=== PATIENT | male | born 2000 | race Caucasian/White ===

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

== ENCOUNTER 2020-05-17 19:19 | Emergency (ER) | payer SELFPAY ==
[2020-05-17 19:29] VITALS: BP 135/73; PULSE 96; RESP 16; TEMP 36.4; O2SAT 95
--- NOTE | 2020-05-17 20:22 | W.ED.GENAD ---
Discharge Plan Disposition Patient Disposition: HOME Condition: Good Discharge Details Clinical Impression: Foreign body in eye Primary Care Provider: Daniela Funk ED Provider: Rosmery Vega Home Meds and New Rx's Prescriptions: No Action No Known Home Meds RF: 0 Discharge Instructions Instructions: Erythromycin (Into the eye), Eye Foreign Body (ED) Additional Instructions: You had a piece of metal in the eye which was removed. However, there are also multiple scratches of your cornea. Please apply the erythromycin ointment as was instructed by nursing staff 4 times daily for the next 5 days. Please call [facility], number listed below, to schedule appointment in the next 2 days for reevaluation. If you develop fever/chills, discharge from the eye, visual changes, redness or other new/worsening symptoms please seek care urgently once again. Tetanus was updated today. Referrals: [facility] [place] [facility] [Outside] Daniela Funk, BEVEL GEAR GENERATOR OPERATOR [Primary Care Provider] - Discharge Data Discharge Date/Time-TO BE ENTERED AT DEPARTURE: 05/17/20 20:40 Medical Decision Making Patient is a pleasant 50-year-old male presenting today with chief complaint of foreign body in his right eye. 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 Last tetanus was 2012. He denies any visual changes. Denies any discharge GI. No other injuries noted. On exam, he has mild diffuse injection of the right eye. No discharge. A small black leonel consistent with restroom out was noted in the upper lid, this was removed with a Q-tip. Patient had multiple linear areas of fluorescein uptake on slit-lamp exam consistent with corneal abrasions likely from the patient blinking with a foreign body in place. Erythromycin ointment was started. Patient was instructed on how to apply this at home. Tetanus was updated. Patient does not use contacts or corrective lenses. I have asked that he follow-up with [facility]. She will call them tomorrow to schedule appointment. Return precautions were discussed. All his questions and concerns were addressed and he is in agreement this plan. HPI General Mode of arrival: ambulatory. Date/Time Provider Initiated Documentation: 05/17/20 20:05. Limitations to Documentation: no limitations. Information obtained by: patient and RN notes reviewed. History of Present Illness 19 year old M presents to the emergency department with the chief complaint of FB sensation and discomfort right eye, described as moderate, with intensity rated at 5. and is localized to the eyes. Patient reports no radiation. Patient started experiencing this minute(s) and it has been constant. No relieving factors improve symptom(s), No exacerbating factors reported . Patient notes no other symptoms.. Patient did receive the following treatments prior to arrival, none Related Data Home Medications Medication Instructions Recorded Confirmed Unknown [No Known Home Meds] 05/17/20 05/17/20 Allergies Allergy/AdvReac Type Severity Reaction Status Date / Time amoxicillin Allergy Mild RASH Verified 05/17/20 19:32 General Stated Complaint: EyeProblem PAYAM: 4 Review of Systems Constitutional Constitutional: Reports as per HPI, Denies chills, Denies fatigue, Denies fever(s) and Denies headache(s) Eyes Eyes: Reports as per HPI ENT Ears, Nose, Mouth, and Throat: Denies headache(s) Cardiovascular Cardiovascular: Reports as per HPI, Denies chest pain and Denies lightheadedness Respiratory Respiratory: Denies cough Integumentary/Breasts Skin/Breast: Reports as per HPI, Denies rash, Denies skin pain and Denies skin swelling Neurologic Neurologic: Denies headache(s) and Denies radicular pain Endocrine Endocrine: Denies fatigue [facility] Medical History (Updated 05/17/20 @ 20:25 by DEBRA Lozano) [id number]-[id number] spots right cheek Chronic back pain 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) Heart murmur Still's murmur Premature at 32 weeks Surgical History Repair of inguinal hernia bilateral at 6 months age Family History Father Mental disorder depression related to back pain Other Disorder of thyroid gland several maternal relatives Personal history of malignant neoplasm mat uncle with lymphoma Heart disease on maternal side Parkinsonism maternal side Grandmother Hypertensive disorder, systemic arterial Mother Hx of tonsillectomy Social History Smoking/Tobacco Use Status: Never Smoking risk assessment performed?: Yes Alcohol Intake: never Drug use: Never Substance use type: does not use Do you feel safe at home: Yes Do you feel safe in your relationship?: Yes Exam Const General: cooperative, healthy appearing, comfortable, no acute distress, well developed and well groomed Nutritional Appearance: average body habitus and well nourished Orientation: alert, awake and oriented x3 [facility] Head: normal to inspection, normocephalic and atraumatic Ears: hearing grossly normal bilaterally and external ears normal General nose exam: external nose normal and nares normal Face and sinus: normal facial exam and face symmetric Mouth: oral mucosae normal, lip normal and moist mucous membranes Eyes Visual Champagne: normal visual champagne by confrontation Alignment and Position: alignment normal and position normal Periorbital: periorbital findings normal Eyelids: eyelid abnormality right upper eyelid foreign body (small black leonel ) Conjunctivae: conjunctival abnormality right conjunctival injection diffuse Cornea: corneas abnormal on the right fluorescein used and abrasion (multiple linear abrasions over pupil) Pupils: PERRL, normal by confrontation and accommodation normal EOM: EOM intact bilaterally Resp Effort & Inspection: normal respiratory effort, able to speak in complete sentences and no respiratory distress Skin General skin exam: no rashes or lesions noted Neuro General: patient alert, patient awake and patient oriented x3 Cranial Nerves: CN's II-XI intact bilaterally Cognition: normal cognition Speech: speech normal Gait: normal gait Psych Appearance: grossly normal and well kempt Mental Status: mental status grossly normal Speech and Movement: speech and movement normal Course Vital Signs Vital signs: Vital Signs Temperature 36.4 C L 05/17/20 19:29 Pulse 96 H 05/17/20 19:29 Respiratory Rate 16 05/17/20 19:29 Blood Pressure 135/73 05/17/20 19:29 Pulse Oximetry 95 05/17/20 19:29 Temperature 36.4 C L 05/17/20 19:29 Temperature Source Skin 05/17/20 19:29 Pulse 96 H 05/17/20 19:29 Respiratory Rate 16 05/17/20 19:29 Respiratory Effort Non-Labored 05/17/20 19:33 Blood Pressure 135/73 05/17/20 19:29 Pulse Oximetry 95 05/17/20 19:29 Pain Level 5 05/17/20 19:29
[2020-05-17] MEDS: Erythromycin Ophth Oint 3.5 GM TUBE OD (20:35)
[2020-05-17] MEDS: Tetracaine 0.5% 4 ML BTL (20:36)
[2020-05-17] MEDS: Fluorescein STRIPS 100/BOX 1 MG (20:36)
== END 2020-05-17 20:40 | disposition home or self-care (01) ==
PROVIDERS: Emergency Provider Physician Assistant; PCP Nurse Practitioner
DX: S00.251A Superficial foreign body of right eyelid and periocular area, initial encounter; S05.01XA Injury of conjunctiva and corneal abrasion without foreign body, right eye, initial encounter; W45.8XXA Other foreign body or object entering through skin, initial encounter
CPT/HCPCS: 90471; 99284; 99283

== ENCOUNTER 2022-02-20 13:28 | Emergency (ER) | payer OTHER, SELFPAY ==
[2022-02-20 13:32] VITALS: BP 154/96; PULSE 97; RESP 32; TEMP 36.5; O2SAT 100
[2022-02-20] MEDS: Ondansetron 4 MG/2 ML VIAL IVP (13:48)
[2022-02-20] MEDS: LORazepam 20 MG/10 ML VIAL IVP (13:49)
[2022-02-20 14:05] LABS: Abs Immature Grans 0.02 10^3/uL (0.0-0.06); Absolute Basophil Count 0.05 10^3/uL (0.0-0.2); Absolute Eosinophil Count 0.14 10^3/uL (0.0-0.7); Absolute Lymphocyte Count 2.96 10^3/uL (1.2-3.4); Absolute Monocyte Count 0.65 10^3/uL (0.1-0.8); Absolute Neutrophil Count 5.95 10^3/uL (1.2-6.7); Basophils % 0.5; Eosinophils % 1.4; HCT 45.1 % (40.0-50.0); Immature Grans % 0.2; Lymphocytes % 30.3; MCH 30.6 pg (27.0-33.0); MCHC 35.5 % (32.0-36.0); MCV 86 fL (80-95); MPV 11.3 fL (8.0-11.0); Monocytes % 6.7; Neutrophils % 60.9; Platelet Count 298 10^3/uL (130-400); RBC 5.23 10^6/uL (4.36-5.78); RDW 12.1 % (11.8-14.1); RDW-SD 38.5 fL; WBC 9.77 10^3/uL (4.4-10.8)
--- NOTE | 2022-02-20 14:08 | NUR.NOTE ---
Nursing Note: patient vomited in triage x1. patient states stomach feels worse even after Zofran. provider aware.
[2022-02-20 14:24] LABS: Bilirubin Negative (Negative); Blood Negative (Negative); Clarity Sl Cloudy (Clear); Glucose Negative (Negative); Ketones 15 mg/dL (Negative); Leukocyte Esterase Negative (Negative); Nitrite Negative (Negative); Urobilinogen 0.2 EU/dL (Up TO 0.2); pH 8.5 (5-8)
[2022-02-20 14:27] LABS: ALT 34 U/L (16-63); AST 27 U/L (15-37); Albumin 4.7 g/dL (3.4-5.0); Alkaline Phosphatase 92 U/L (46-116); Anion Gap 15.5 mmol/L (3-11); BUN 13 mg/dL (7-18); Bilirubin, Total 0.8 mg/dL (0.2-1.0); CO2 22.5 mmol/L (21.0-32.0); Calcium 9.5 mg/dL (8.5-10.1); Chloride 99 mmol/L (98-107); Estimated GFR 109.81 (mL/min/1.73m2); Glucose 119 mg/dL (74-106); Lipase 39 U/L (73-393); Magnesium 1.8 mg/dL (1.8-2.4); Potassium 3.2 mmol/L (3.5-5.1); Sodium 137 mmol/L (136-145); Total Protein 8.7 g/dL (6.4-8.2)
[2022-02-20 14:35] LABS: Bacteria Negative HPF (Negative); C & S Indicated? No; Casts Negative LPF (Negative); Crystals Many Amorphous HPF (Negative); Epithelial Cells Rare HPF (Negative); Mucus Negative (Negative); WBC 0-2 HPF (0-5)
[2022-02-20 14:46] VITALS: RESP 12
[2022-02-20] MEDS: Normal Saline 1,000 ML 1000 ML IV (14:46)
[2022-02-20 15:18] VITALS: TEMP 36.5
[2022-02-20 15:19] LABS: Source Nasal/Nares
[2022-02-20 15:24] VITALS: BP 117/81; PULSE 55; RESP 16; TEMP 36.5; O2SAT 99
--- NOTE | 2022-02-20 15:30 | RT.EKG_ITS ---
APPROVED REPORT Exam: Resting ECG Reason for Exam: chest tightness Patient Location: E HR:56 bpm ECG Measurements Heart Rate 56 AXIS CA 116 P 39 QRSd 107 QRS 74 QT 430 T 53 QTc 415 Conclusion Sinus bradycardia...rate< 60. Sinus. Normal axis. No STEMI. I have reviewed and interpreted ECG and agree with software generated interpretation.
[2022-02-20 15:53] LABS: COVID-19 PCR Negative (Negative)
--- NOTE | 2022-02-20 16:02 | ED.GENADUL_ITS ---
Discharge Plan Disposition Patient Disposition: HOME Condition: Improving Discharge Details Clinical Impression: Acute nausea with nonbilious vomiting, Anxiety disorder due to general medical condition with panic attack Primary Care Provider: Daniela Funk ED Provider: Herbert Sharif Home Meds and New Rx's Prescriptions: No Action No Known Home Meds Discharge Instructions Instructions: Acute Nausea and Vomiting (ED) Additional Instructions: Please take the p.o. nausea medication as directed on the bottle. You may slowly advance your diet as tolerated and return immediately to the emergency department for any new or significant worsening symptoms. Your nausea that is recurrent may also be secondary to marijuana usage. It is recommended that you stop any marijuana or THC for the next 2 weeks to see if this helps you with your symptoms. If not improving in the next week please follow-up with primary care provider for reassessment. Referrals: Daniela Funk, BUSINESS INTEGRATION ANALYST [Primary Care Provider] - 1 week (If not improving) Discharge Data Discharge Date/Time-TO BE ENTERED AT DEPARTURE: 02/20/22 16:40 Medical Decision Making Patient presenting to the emergency department for chief complaint of nausea vomiting and some diarrhea. After he started vomiting he began hyperventilating causing facial and hand cramps with chest tightness and some shortness of breath. Patient was eating [place] food at the time. Patient denies any food allergies. Physical exam shows significantly anxious patient with tachypnea and hyperventilation with bilateral carpal spasms. Patient endorsing some extremity tingling around along with circumoral tingling. Exam is otherwise unremarkable except for diffuse abdominal tenderness that is nonfocal in nature and I feel secondary to vomiting. We will plan on checking patient's labs but I suspect either viral versus food borne illness causing secondary panic attack. Reviewed patient's labs and CBC is nondiagnostic and overall unremarkable. Patient's potassium slightly low at 3.2 and an anion gap of 15.5 otherwise unremarkable LFTs, magnesium is appropriate, calcium is appropriate, lipase also unremarkable at 39. Urinalysis does show ketones and high pH but again otherwise nondiagnostic and overall unremarkable. Patient was noted negative for COVID. Reassessed patient after receiving fluids and meds and he does state significant improvement of symptoms. Mother now in the room and she does state that patient has history of cyclical vomiting and panic attacks. Discussed other potential causes with patient including cannabinoid hyperemesis. Recommended clear liquid diet with slowly advancing diet as tolerated along with returning to the emergency department for any focal abdominal findings but at this time I do not feel that CT imaging is needed. Cute onset of nausea vomiting. After discussion of diagnosis and plan of care patient and mother have no further needs, questions, or concerns and states clear understanding to return to the emergency department for any worsening symptoms. This documentation was generated using [employer] dictation system, please disregard any oddities of phrase or misspellings. Lab Data Lab results reviewed: Yes I reviewed the patient's lab results. HPI General Mode of arrival: ambulatory . Date/Time Provider Initiated Documentation: 02/20/22 13:40 . Limitations to Documentation: no limitations . Information obtained by: patient and RN notes reviewed . History of Present Illness 21 year old M presents to the emergency department with the chief complaint of Nausea and vomitting and now hand cramping, described as moderate, with intensity rated at 4. Quality is described as aching, and is localized to the abdomen. Patient reports no radiation. Patient started experiencing this hour(s) (1) and it has been constant. No relieving factors improve symptom(s), Eating worsens symptoms . Patient notes chest pain, loss of appetite, nausea/vomiting and shortness of breath. Patient did receive the following treatments prior to arrival, none Related Data Home Medications Medication Instructions Recorded Confirmed Unknown [No Known Home Meds] 05/17/20 02/20/22 Allergies Allergy/AdvReac Type Severity Reaction Status Date / Time amoxicillin Allergy Mild RASH Verified 02/20/22 14:15 General Stated Complaint: GenMedical PAYAM: 3 Review of Systems Constitutional Constitutional: Denies fatigue and Reports fever(s) (Subjective) Cardiovascular Cardiovascular: Reports chest pain and Reports dyspnea Respiratory Respiratory: Denies cough and Reports dyspnea Gastrointestinal Gastrointestinal: Reports as per HPI, Reports abdominal pain, Denies melena, Denies hematochezia, Denies change in bowel habits, Denies constipation, Reports diarrhea, Reports nausea, Reports vomiting and Denies hematemesis Genitourinary Genitourinary: Denies hematuria, Denies difficulty urinating and Denies dysuria Musculoskeletal Musculoskeletal: Denies back pain, Reports muscle cramps and Reports tingling Integumentary/Breasts Skin/Breast: Denies rash Neurologic Neurologic: Reports tingling Psychiatric Psychiatric: Reports anxiety Endocrine Endocrine: Denies fatigue PFSH All Active Problems Acute nausea with nonbilious vomiting (Acute) Anxiety disorder due to general medical condition with panic attack (Acute) Chronic back pain (Acute) Acute bilateral low back pain with bilateral sciatica (Acute) Contusion of foot (Acute) Medical History Jqcz-[id number] spots right cheek 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) Heart murmur Still's murmur Premature at 32 weeks Surgical History Repair of inguinal hernia bilateral at 6 months age Family History Father Mental disorder depression related to back pain Other Disorder of thyroid gland several maternal relatives Personal history of malignant neoplasm mat uncle with lymphoma Heart disease on maternal side Parkinsonism maternal side Grandmother Hypertensive disorder, systemic arterial Mother Hx of tonsillectomy Social History Smoking/Tobacco Use Status: Current every day Tobacco Type: e-cigarettes Tobacco: How many years used: 1 Smoking risk assessment performed?: Yes Alcohol Intake: never Drug use: Daily Substance use type: marijuana Do you feel safe at home: Yes Do you feel safe in your relationship?: Yes Exam Const General: cooperative, acute distress moderate; not respiratory and anxious Orientation: alert, awake and oriented x3 Resp Effort & Inspection: able to speak in complete sentences, no respiratory distress and tachypneic Auscultation: clear to auscultation bilaterally Cardio Rate: regular rate Rhythm: regular rhythm Heart Sounds: S1 normal and S2 normal GI Palpation: soft, no hepatosplenomegaly, not firm, no guarding, no masses, no pulsatile masses, not rigid, no splenomegaly and tender (difuse nonperitoneal findings) Auscultation: normal bowel sounds Back/Spine/Pelvis Back: no CVA tenderness Neuro General: patient alert, patient awake, patient oriented x3, gait normal and mov es all extremities Psych Mood: anxious mood Affect: anxious affect Course Vital Signs Vital signs: Vital Signs Temperature 36.5 C 02/20/22 13:32 Pulse 97 H 02/20/22 13:32 Respiratory Rate 32 H 02/20/22 13:32 Blood Pressure 154/96 H 02/20/22 13:32 Pulse Oximetry 100 02/20/22 13:32 Temperature 36.5 C 02/20/22 15:24 Temperature Source Tympanic 02/20/22 15:24 Pulse 55 L 02/20/22 15:24 Respiratory Rate 16 02/20/22 15:24 Respiratory Effort Non-Labored 02/20/22 14:46 Respiratory Depth Normal 02/20/22 14:46 Respiratory Pattern Normal 02/20/22 14:46 Blood Pressure 117/81 02/20/22 15:24 Blood Pressure Position Sitting 02/20/22 13:32 Pulse Oximetry 99 02/20/22 15:24 Oxygen Delivery Method Room Air 02/20/22 15:24 Oxygen Flow Rate 0 02/20/22 15:24 Pain Level 4 02/20/22 13:32 Lab/Test Results Lab/Test Results: Laboratory Tests Range/Units 02/20/22 02/20/22 02/20/22 13:35 13:35 14:00 WBC (4.4-10.8) 10^3/uL 9.77 RBC (4.36-5.78) 10^6/uL 5.23 Hgb (13.5-17.5) g/dL 16.0 Hct (40.0-50.0) % 45.1 MCV (80-95) fL 86 MCH (27.0-33.0) pg 30.6 MCHC (32.0-36.0) % 35.5 RDW (11.8-14.1) % 12.1 Plt Count (130-400) 10^3/uL 298 MPV (8.0-11.0) fL 11.3 H Immature Gran % 0.2 Neutrophils % 60.9 Lymphocytes % 30.3 Monocytes % 6.7 Eosinophils % 1.4 Basophils % 0.5 Nucleated RBC % (0.0-0.3) % 0.0 Absolute Neutrophils (1.2-6.7) 10^3/uL 5.95 Absolute Lymphocytes (1.2-3.4) 10^3/uL 2.96 Absolute Monocytes (0.1-0.8) 10^3/uL 0.65 Absolute Eosinophils (0.0-0.7) 10^3/uL 0.14 Absolute Basophils (0.0-0.2) 10^3/uL 0.05 Sodium (136-145) mmol/L 137 Potassium (3.5-5.1) mmol/L 3.2 L Chloride (98-107) mmol/L 99 Carbon Dioxide (21.0-32.0) mmol/L 22.5 Anion Gap (3-11) mmol/L 15.5 H BUN (7-18) mg/dL 13 Creatinine (0.70-1.30) mg/dL 1.0 Est GFR (CKD-EPI 2020) (mL/min/1.73m2) 109.81 Glucose (74-106) mg/dL 119 H Calcium (8.5-10.1) mg/dL 9.5 Magnesium (1.8-2.4) mg/dL 1.8 Total Bilirubin (0.2-1.0) mg/dL 0.8 AST (15-37) U/L 27 ALT (16-63) U/L 34 Alkaline Phosphatase (46-116) U/L 92 Total Protein (6.4-8.2) g/dL 8.7 H Albumin (3.4-5.0) g/dL 4.7 Lipase (73-393) U/L 39 Urine Color (Yellow) Yellow Urine Clarity (Clear) Sl Cloudy Urine pH (5-8) 8.5 H Ur Specific [place] (1.005-1.025) 1.020 Urine Protein (Negative) mg/dL 30 H Urine Ketones (Negative) mg/dL 15 H Urine Blood (Negative) Negative Urine Nitrite (Negative) Negative Urine Bilirubin (Negative) Negative Urine Urobilinogen (Up TO 0.2) EU/dL 0.2 Ur Leukocyte Esterase (Negative) Negative Urine RBC (0-2) HPF 3-5 H Urine WBC (0-5) HPF 0-2 Ur Epithelial Cells (Negative) HPF Rare Urine Crystals (Negative) HPF Many Amorphous Urine Bacteria (Negative) HPF Negative Urine Casts (Negative) LPF Negative Urine Mucus (Negative) Negative Ur Culture Indicated? No Urine Glucose (Negative) mg/dL Negative COVID-19 Source Range/Units 02/20/22 15:07 WBC (4.4-10.8) 10^3/uL RBC (4.36-5.78) 10^6/uL Hgb (13.5-17.5) g/dL Hct (40.0-50.0) % MCV (80-95) fL MCH (27.0-33.0) pg MCHC (32.0-36.0) % RDW (11.8-14.1) % Plt Count (130-400) 10^3/uL MPV (8.0-11.0) fL Immature Gran % Neutrophils % Lymphocytes % Monocytes % Eosinophils % Basophils % Nucleated RBC % (0.0-0.3) % Absolute Neutrophils (1.2-6.7) 10^3/uL Absolute Lymphocytes (1.2-3.4) 10^3/uL Absolute Monocytes (0.1-0.8) 10^3/uL Absolute Eosinophils (0.0-0.7) 10^3/uL Absolute Basophils (0.0-0.2) 10^3/uL Sodium (136-145) mmol/L Potassium (3.5-5.1) mmol/L Chloride (98-107) mmol/L Carbon Dioxide (21.0-32.0) mmol/L Anion Gap (3-11) mmol/L BUN (7-18) mg/dL Creatinine (0.70-1.30) mg/dL Est GFR (CKD-EPI 2020) (mL/min/1.73m2) Glucose (74-106) mg/dL Calcium (8.5-10.1) mg/dL Magnesium (1.8-2.4) mg/dL Total Bilirubin (0.2-1.0) mg/dL AST (15-37) U/L ALT (16-63) U/L Alkaline Phosphatase (46-116) U/L Total Protein (6.4-8.2) g/dL Albumin (3.4-5.0) g/dL Lipase (73-393) U/L Urine Color (Yellow) Urine Clarity (Clear) Urine pH (5-8) Ur Specific [place] (1.005-1.025) Urine Protein (Negative) mg/dL Urine Ketones (Negative) mg/dL Urine Blood (Negative) Urine Nitrite (Negative) Urine Bilirubin (Negative) Urine Urobilinogen (Up TO 0.2) EU/dL Ur Leukocyte Esterase (Negative) Urine RBC (0-2) HPF Urine WBC (0-5) HPF Ur Epithelial Cells (Negative) HPF Urine Crystals (Negative) HPF Urine Bacteria (Negative) HPF Urine Casts (Negative) LPF Urine Mucus (Negative) Ur Culture Indicated? Urine Glucose (Negative) mg/dL COVID-19 Source Nasal/Nares
[2022-02-20] MEDS: Ondansetron O.D.T. 4 MG TABEF, 3 TABS/BTL PO (16:43)
== END 2022-02-20 16:40 | disposition home or self-care (01) ==
PROVIDERS: Emergency Provider Nurse Practitioner Family; PCP Nurse Practitioner
DX: R11.2 Nausea with vomiting, unspecified (principal); F41.0 Panic disorder [episodic paroxysmal anxiety]; F17.290 Nicotine dependence, other tobacco product, uncomplicated; E87.6 Hypokalemia; R07.89 Other chest pain; Z20.822 Contact with and (suspected) exposure to COVID-19
CPT/HCPCS: 80053; 83690; 87635; 93005; 96361; 96374; 96375; 99284; 81003; 81015; 83735; 85025; 93010; J2405; J3490

== ENCOUNTER 2022-03-20 10:35 | Emergency (ER) | payer OTHER, SELFPAY ==
[2022-03-20 10:41] VITALS: BP 133/85; PULSE 92; RESP 18; TEMP 36.7; O2SAT 97
--- NOTE | 2022-03-20 10:44 | W.ED.GENAD ---
Discharge Plan Disposition Patient Disposition: HOME Condition: Improving Discharge Details Clinical Impression: Allergic reaction to hymenoptera venom Primary Care Provider: Daniela Funk ED Provider: Salazar Brown Home Meds and New Rx's Prescriptions: New prednisone 50 mg tablet 50 mg PO DAILY 5 Days Qty: 5 0RF Discharge Instructions Instructions: General Allergic Reaction (ED) Additional Instructions: Topical Benadryl to the left hand will help ease discomfort. May use Benadryl 25 to 50 mg at bedtime for persistent itching. Please take prednisone as prescribed until finished once daily. Return to the ER for any acute concern. Medical Decision Making 21-year-old male presents from home after being struck by a yellow jacket wasp on Saturday. Had left hand dorsum swelling, itching and edema. No difficulty swallowing or breathing. No fever. Consistent with acute hymenoptera reaction. We will treat with a burst of prednisone and topical antihistamine. He is stable and appropriate for discharge to home. HPI General Mode of arrival: ambulatory. Date/Time Provider Initiated Documentation: 03/20/22 10:36. Limitations to Documentation: no limitations. Information obtained by: patient. History of Present Illness 21 year old M presents to the emergency department with the chief complaint of Left hand itching and swelling after insect bite/hymenoptera, described as moderate, Quality is described as dull and constant, and is localized to the left and upper extremity. Patient reports no radiation. Patient started experiencing this day(s) and it has been constant. No relieving factors improve symptom(s), No exacerbating factors reported . Patient notes denies chest pain, cough and shortness of breath. Patient did receive the following treatments prior to arrival, none Related Data Home Medications Medication Instructions Recorded Confirmed prednisone 50 mg tablet 50 mg PO DAILY 5 days #5 tabs 03/20/22 Previous Rx's Medication Instructions Recorded prednisone 50 mg tablet 50 mg PO DAILY 5 days #5 tabs 03/20/22 Allergies Allergy/AdvReac Type Severity Reaction Status Date / Time amoxicillin Allergy Mild RASH Verified 03/20/22 10:43 General Stated Complaint: Allergic PAYAM: 4 Review of Systems Narrative: No shortness of breath, or difficulty swallowing, otherwise healthy gentleman. 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) Heart murmur Still's murmur Premature at 32 weeks Surgical History Repair of inguinal hernia bilateral at 6 months age Family History Father Mental disorder depression related to back pain Other Disorder of thyroid gland several maternal relatives Personal history of malignant neoplasm mat uncle with lymphoma Heart disease on maternal side Parkinsonism maternal side Grandmother Hypertensive disorder, systemic arterial Mother Hx of tonsillectomy Social History Smoking/Tobacco Use Status: Current every day Tobacco Type: e-cigarettes Tobacco: How many years used: 1 Smoking risk assessment performed?: Yes Alcohol Intake: never Drug use: Daily Substance use type: marijuana Do you feel safe at home: Yes Do you feel safe in your relationship?: Yes Exam Narrative Exam Narrative: GEN: awake, alert, oriented 3. Pleasant, well groomed, interactive. HEAD: Normocephalic, atraumatic EYES: PERRL, EOMI NECK: Full ROM, no STEVEN, no menigismus CHEST/RESP: Nontender, clear to auscultation bilateral, no wheeze/rhonchi/rales CARDIOVASCULAR: RRR, no murmur, rub albin. 2+ Rad pulse bilateral EXT: Full ROM, left dorsum of the hand edematous with slight erythema present. Neuro: Grossly normal neurologic exam, conversant, interactive. Psych: Speech fluent, thoughts congruent, affect normal Course Vital Signs Vital signs: Vital Signs Temperature 36.7 C 03/20/22 10:41 Pulse 92 H 03/20/22 10:41 Respiratory Rate 18 03/20/22 10:41 Blood Pressure 133/85 03/20/22 10:41 Pulse Oximetry 97 03/20/22 10:41 Temperature 36.7 C 03/20/22 10:41 Temperature Source Oral 03/20/22 10:41 Pulse 92 H 03/20/22 10:41 Respiratory Rate 18 03/20/22 10:41 Blood Pressure 133/85 03/20/22 10:41 Blood Pressure Position Sitting 03/20/22 10:41 Pulse Oximetry 97 03/20/22 10:41 Oxygen Delivery Method Room Air 03/20/22 10:41 Oxygen Flow Rate 0 03/20/22 10:41
== END 2022-03-20 10:56 | disposition home or self-care (01) ==
PROVIDERS: Emergency Provider Emergency Medicine; PCP Nurse Practitioner
DX: T63.461A Toxic effect of venom of wasps, accidental (unintentional), initial encounter (principal); L29.9 Pruritus, unspecified; F17.290 Nicotine dependence, other tobacco product, uncomplicated; Y92.009 Unspecified place in unspecified non-institutional (private) residence as the place of occurrence of the external cause
CPT/HCPCS: 99283; 99284

== ENCOUNTER 2022-07-09 13:01 | Emergency (ER) | payer SELFPAY ==
--- NOTE | 2022-07-09 13:00 | RT.EKG_ITS ---
APPROVED REPORT Exam: Resting ECG Reason for Exam: nausea vomiting Patient Location: E HR:75 bpm ECG Measurements Heart Rate 75 AXIS MI 107 P 1 QRSd 103 QRS 77 QT 407 T 41 QTc 456 Conclusion Sinus rhythm...normal P axis, V-rate 60- 99
[2022-07-09 13:13] VITALS: BP 176/84; PULSE 84; RESP 22; TEMP 36.3; O2SAT 98
[2022-07-09 13:16] VITALS: BP 176/84; O2SAT 100
--- NOTE | 2022-07-09 13:22 | ED.GENADUL_ITS ---
Discharge Plan Disposition Patient Disposition: Home Condition: Improving Discharge Details Chief Complaint: Nausea/Vomit/Diar Clinical Impression: Cannabinoid hyperemesis syndrome Primary Care Provider: Lyle Diamond ED Provider: Salazar Brown Home Meds and New Rx's Prescriptions: No Action No Known Home Meds Discharge Instructions Additional Instructions: You may be developing intermittent episodes of cannabinoid hyperemesis syndrome. This responds to decrease intake of cannabis. Home to rest today. Small, frequent sips of fluids to maintain hydration. Return if you develop a fever, worsening discomfort, or any other acute concerns. Your sodium was slightly low today and you may liberalize salty snacks in the diet for the next 24 hours Medical Decision Making 21-year-old male, daily user of cannabis, presents with hours of persistent nausea and vomiting that improved with the use of a hot shower at home. He has had episodes of this in the past. He has not had a fever. No known sick contacts or suspicious food intake. Patient appears somewhat anxious as I walked into the room. His blood pressure is 176/80 and vital signs are otherwise normal. Differential diagnosis would include cannabinoid hyperemesis syndrome, dehydration, metabolic abnormality. Patient IV access established, given fluids and parenteral antiemetic. He is also given a small aliquot of Ativan for its anxiolytic and antiemetic properties. Laboratories reveal mild elevation white blood cell count at 14, hematocrit is 46 and platelets 284. Chemistries note a normal lipase, slightly low sodium of 135, potassium 3.4, chloride 100 and a bicarb is 29. BUN 13 and creatinine 1.1. Patient stable, improved, requesting discharge to home. Will offer antiemetic if needed at home. He is stable and improving. This is most consistent with cannabinoid hyperemesis syndrome. HPI General Mode of arrival: ambulatory . Date/Time Provider Initiated Documentation: 07/09/22 13:08 . Limitations to Documentation: no limitations . Information obtained by: patient . History of Present Illness 21 year old M presents to the emergency department with the chief complaint of Recurrent vomiting today, described as moderate and similar to prior episodes, and is localized to the abdomen. Patient reports no radiation. Patient started experiencing this hour(s) and it has been intermittent. No relieving factors improve symptom(s), Eating worsens symptoms . Patient notes no other symptoms.; denies fever/chills. Patient did receive the following treatments prior to arrival, none Related Data Home Medications Medication Instructions Recorded Confirmed Unknown [No Known Home Meds] 07/09/22 07/09/22 Allergies Allergy/AdvReac Type Severity Reaction Status Date / Time amoxicillin Allergy Mild RASH Verified 07/09/22 13:16 General Stated Complaint: Nausea/Vomit/Diar PAYAM: 3 Review of Systems Narrative: Daily use of cannabis. No fever. No loose or watery stools. No known sick contacts. Denies chest pain or palpitations. 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) Heart murmur Still's murmur Premature at 32 weeks Surgical History Repair of inguinal hernia bilateral at 6 months age Family History Father Mental disorder depression related to back pain Other Disorder of thyroid gland several maternal relatives Personal history of malignant neoplasm mat uncle with lymphoma Heart disease on maternal side Parkinsonism maternal side Grandmother Hypertensive disorder, systemic arterial Mother Hx of tonsillectomy Social History Smoking/Tobacco Use Status: Current every day Tobacco Type: e-cigarettes Tobacco: How many years used: 1 Smoking risk assessment performed?: Yes Alcohol Intake: never Drug use: Daily Substance use type: marijuana Do you feel safe at home: Yes Do you feel safe in your relationship?: Yes Exam Narrative Exam Narrative: GEN: awake, alert, oriented 3. Pleasant, well groomed, interactive. HEAD: Normocephalic, atraumatic ENT: Mucous membranes dry, oropharynx unremarkable, External ear exam unremarkable EYES: PERRL, EOMI NECK: Full ROM, no STEVEN, no menigismus CHEST/RESP: Nontender, clear to auscultation bilateral, no wheeze/rhonchi/rales CARDIOVASCULAR: RRR, no murmur, rub albin. 2+ Rad pulse bilateral ABDOMEN: Soft, tender without rebound or guarding present, no mass. +Bowel sounds EXT: Full ROM, no edema, no rash Neuro: Grossly normal neurologic exam, conversant, interactive. Psych: Speech fluent, thoughts congruent, affect anxious Course Vital Signs Vital signs: Vital Signs Temperature 36.3 C L 07/09/22 13:13 Pulse 84 07/09/22 13:13 Respiratory Rate 22 07/09/22 13:13 Blood Pressure 176/84 H 07/09/22 13:13 Pulse Oximetry 98 07/09/22 13:13 Temperature 36.3 C L 07/09/22 13:13 Temperature Source Skin 07/09/22 13:13 Pulse 84 07/09/22 13:13 Respiratory Rate 22 07/09/22 13:13 Respiratory Effort 07/09/22 13:16 Blood Pressure 176/84 H 07/09/22 13:16 Blood Pressure Position Supine 07/09/22 13:16 Pulse Oximetry 100 07/09/22 13:16 Oxygen Delivery Method Non-Rebreather 07/09/22 13:16 Oxygen Flow Rate 0 07/09/22 13:16 Pain Level 8 07/09/22 13:13
[2022-07-09] MEDS: LORazepam 2 MG/ML VIAL 0.5 MG IVP (13:27)
[2022-07-09] MEDS: Normal Saline 1,000 ML 1000 ML IV (13:27)
[2022-07-09] MEDS: Normal Saline Flush 10 ML SYR IVP (13:28)
[2022-07-09] MEDS: Ondansetron 4 MG/2 ML VIAL (13:28)
[2022-07-09 13:39] LABS: Abs Immature Grans 0.05 10^3/uL (0.0-0.06); Absolute Basophil Count 0.03 10^3/uL (0.0-0.2); Absolute Eosinophil Count 0.01 10^3/uL (0.0-0.7); Absolute Monocyte Count 0.31 10^3/uL (0.1-0.8); Absolute Neutrophil Count 13.26 10^3/uL (1.2-6.7); Basophils % 0.2; Eosinophils % 0.1; HCT 46.5 % (40.0-50.0); HGB 16.9 g/dL (13.5-17.5); Immature Grans % 0.3; Lymphocytes % 6.8; MCH 30.8 pg (27.0-33.0); MCHC 36.3 % (32.0-36.0); MCV 85 fL (80-95); Monocytes % 2.1; Neutrophils % 90.5; Platelet Count 284 10^3/uL (130-400); RBC 5.48 10^6/uL (4.36-5.78); RDW 11.7 % (11.8-14.1); RDW-SD 36.1 fL; WBC 14.65 10^3/uL (4.4-10.8)
[2022-07-09 13:53] LABS: Lipase 31 U/L (73-393)
[2022-07-09 13:58] LABS: ALT 32 U/L (16-63); AST 24 U/L (15-37); Albumin 4.9 g/dL (3.4-5.0); Alkaline Phosphatase 95 U/L (46-116); Anion Gap 13.1 mmol/L (3-11); BUN 13 mg/dL (7-18); CO2 21.9 mmol/L (21.0-32.0); CREATININE 1.1 mg/dL (0.70-1.30); Calcium 9.7 mg/dL (8.5-10.1); Chloride 100 mmol/L (98-107); Estimated GFR 97.95 (mL/min/1.73m2); Glucose 159 mg/dL (74-106); Potassium 3.4 mmol/L (3.5-5.1); Sodium 135 mmol/L (136-145); Total Protein 8.8 g/dL (6.4-8.2)
[2022-07-09] MEDS: Ondansetron O.D.T. 4 MG TABEF, 3 TABS/BTL PO (14:30)
== END 2022-07-09 14:30 | disposition home or self-care (01) ==
PROVIDERS: Emergency Provider Emergency Medicine; PCP Nurse Practitioner Family
DX: R11.2 Nausea with vomiting, unspecified (principal); F17.290 Nicotine dependence, other tobacco product, uncomplicated; D72.829 Elevated white blood cell count, unspecified; E87.6 Hypokalemia
CPT/HCPCS: 80053; 83690; 93005; 96361; 96374; 99284; 85025; 93010; J2060; J2405; J3490

== ENCOUNTER 2022-07-11 15:34 | Emergency (ER) | payer SELFPAY ==
[2022-07-11 15:37] VITALS: BP 160/113; PULSE 105; RESP 18; TEMP 36.9; O2SAT 100
--- NOTE | 2022-07-11 15:57 | ED.GENADUL_ITS ---
Discharge Plan Disposition Patient Disposition: Home Condition: Improving Discharge Details Chief Complaint: Abd Prob Clinical Impression: Vomiting Primary Care Provider: Lyle Diamond ED Provider: Mac Simon Home Meds and New Rx's Prescriptions: No Action No Known Home Meds Discharge Instructions Instructions: Acute Nausea and Vomiting (ED) Additional Instructions: Please follow-up with GI specialist as to be scheduled by care management team. Medical Decision Making 21-year-old male history of recurrent vomiting episodes over the past several months, presents with nausea vomiting over the past 3 days, hand paresthesia and cramping, patient writhing in bed with anxiety and agitation tachycardic and slightly dry on examination with dry oromucosa, abdomen soft nontender nondistended no active vomiting. Given history physical and chart review high clinical suspicion for cannabinoid hyperemesis versus cyclic vomiting versus panic attack lower suspicion for bowel obstruction gastroenteritis enterocolitis Food poisoning cholecystitis or appendicitis. Will obtain IV access fluid hydration, trial of droperidol 1.25 mg IV, labs and urinalysis. Disposition pending reassessment 17: 52 patient resting comfortably no vomiting. Feeling much better. Will be given referral to GI follow-up. HPI General Date/Time Provider Initiated Documentation: 07/11/22 15:48 . HPI Narrative: 21-year-old male history of recurrent vomiting episodes over the past several months, has been vomiting per his girlfriend since Saturday, no diarrhea no abdominal pain, patient feels tingling and cramping in his fingers, patient is writhing in bed intermittently participating with history and physical Related Data Home Medications Medication Instructions Recorded Confirmed Unknown [No Known Home Meds] 07/09/22 07/11/22 Allergies Allergy/AdvReac Type Severity Reaction Status Date / Time amoxicillin Allergy Mild RASH Verified 07/11/22 15:41 General Stated Complaint: Abd Prob PAYAM: 3 Review of Systems Narrative: Review of Systems Constitutional: negative Eyes: negative ENT: negative Cardiovascular: negative Respiratory: negative Gastrointestinal: Nausea vomiting : negative Musculoskeletal: negative Skin: negative Neurologic: Paresthesias and cramping of hands Psych: Agitation PFSH All Active Problems (Updated 07/11/22 @ 17:54 by Mac Simon MD) Cannabinoid hyperemesis syndrome (Acute) Vomiting (Acute) Chronic back pain (Acute) Acute bilateral low back pain with bilateral sciatica (Acute) Contusion of foot (Acute) Medical History Hvjd-bd-pjnb spots right cheek 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) Heart murmur Still's murmur Premature at 32 weeks Surgical History Repair of inguinal hernia bilateral at 6 months age Family History Father Mental disorder depression related to back pain Other Disorder of thyroid gland several maternal relatives Personal history of malignant neoplasm mat uncle with lymphoma Heart disease on maternal side Parkinsonism maternal side Grandmother Hypertensive disorder, systemic arterial Mother Hx of tonsillectomy Social History Smoking/Tobacco Use Status: Current every day Tobacco Type: e-cigarettes Tobacco: How many years used: 1 Smoking risk assessment performed?: Yes Alcohol Intake: never Drug use: Daily Substance use type: marijuana Do you feel safe at home: Yes Do you feel safe in your relationship?: Yes Exam Narrative Exam Narrative: Physical Examination General: alert, awake, uncooperative, writhing in bed HEENT: normocephalic, atraumatic; PERRL, EOM intact, conjunctiva normal; no nasal discharge; slight drying of lips and oral mucosa Neck: supple, trachea midline; full ROM Chest: normal to inspection Respiratory: normal respiratory effort, speaking in full sentences, clear to auscultation, no wheezing, rales or rhonchi Cardiac: Tachycardia, regular rhythm, S1S2 intact, no murmurs rubs or gallops GI: abdomen soft, non-tender, non-distended; no palpable mass or hepatosplenomegaly Skin: no lesions, rashes or trauma appreciated Neuro: AAOx3, normal speech, moving all extremities without deficit Extremities: No signs of trauma Psych: Agitation, anxiety Course Vital Signs Vital signs: Vital Signs Temperature 36.9 C 07/11/22 15:37 Pulse 105 H 07/11/22 15:37 Respiratory Rate 18 07/11/22 15:37 Blood Pressure 160/113 H 07/11/22 15:37 Pulse Oximetry 100 07/11/22 15:37 Temperature 36.9 C 07/11/22 15:37 Temperature Source Temporal Artery Scan 07/11/22 15:37 Pulse 105 H 07/11/22 15:37 Respiratory Rate 18 07/11/22 15:37 Respiratory Effort 07/11/22 15:40 Blood Pressure 160/113 H 07/11/22 15:37 Blood Pressure Position Sitting 07/11/22 15:37 Pulse Oximetry 100 07/11/22 15:37 Oxygen Delivery Method Room Air 07/11/22 15:37 Oxygen Flow Rate 0 07/11/22 15:37 Pain Level 8 07/11/22 15:37
[2022-07-11 16:14] LABS: Abs Immature Grans 0.02 10^3/uL (0.0-0.06); Absolute Basophil Count 0.03 10^3/uL (0.0-0.2); Absolute Eosinophil Count 0.02 10^3/uL (0.0-0.7); Absolute Lymphocyte Count 1.68 10^3/uL (1.2-3.4); Absolute Monocyte Count 0.61 10^3/uL (0.1-0.8); Absolute Neutrophil Count 9.28 10^3/uL (1.2-6.7); Basophils % 0.3; Eosinophils % 0.2; HCT 47.5 % (40.0-50.0); HGB 17.1 g/dL (13.5-17.5); Immature Grans % 0.2; Lymphocytes % 14.4; MCH 30.5 pg (27.0-33.0); MCV 85 fL (80-95); MPV 10.7 fL (8.0-11.0); Monocytes % 5.2; Neutrophils % 79.7; Platelet Count 342 10^3/uL (130-400); RBC 5.61 10^6/uL (4.36-5.78); RDW 11.8 % (11.8-14.1); RDW-SD 36.2 fL; WBC 11.64 10^3/uL (4.4-10.8)
[2022-07-11] MEDS: Normal Saline 1,000 ML 1000 ML IV (16:15)
[2022-07-11] MEDS: Droperidol 5 MG/2 ML VIAL 1.25 MG IVP (16:16)
[2022-07-11 16:27] LABS: ALT 31 U/L (16-63); AST 19 U/L (15-37); Albumin 4.9 g/dL (3.4-5.0); Alkaline Phosphatase 95 U/L (46-116); Anion Gap 12.2 mmol/L (3-11); BUN 14 mg/dL (7-18); Bilirubin, Total 1.1 mg/dL (0.2-1.0); CO2 23.8 mmol/L (21.0-32.0); CREATININE 1.2 mg/dL (0.70-1.30); Calcium 9.9 mg/dL (8.5-10.1); Chloride 96 mmol/L (98-107); Estimated GFR 88.24 (mL/min/1.73m2); Glucose 118 mg/dL (74-106); Lipase 77 U/L (73-393); Magnesium 1.7 mg/dL (1.8-2.4); Potassium 3.5 mmol/L (3.5-5.1); Sodium 132 mmol/L (136-145); Total Protein 8.9 g/dL (6.4-8.2)
[2022-07-11] MEDS: Lactated Ringers 1,000 ML 1000 ML IV (17:05)
[2022-07-11 17:35] LABS: Bilirubin Negative (Negative); Blood Negative (Negative); Clarity Clear (Clear); Glucose Negative (Negative); Ketones Negative (Negative); Leukocyte Esterase Negative (Negative); Nitrite Negative (Negative); Urobilinogen 0.2 EU/dL (Up TO 0.2); pH 6.5 (5-8)
[2022-07-11 17:48] LABS: *AMPHETAMINES SCREEN URINE Negative (Negative); *BARBITURATES SCREEN URINE Negative (Negative); *BENZODIAZEPINES SCREEN URINE Negative (Negative); Cannabinoids THC Positive (Negative); Cocaine Screen,Urine Negative (Negative); METHADONE URINE SCREEN Negative (Negative); OPIATES URINE SCREEN Negative (Negative)
[2022-07-11 17:54] LABS: Tricyclic Antidepressants Negative (Negative)
--- NOTE | 2022-07-23 12:55 | NUR.NOTE ---
Addendum entered by Taylor Sher 07/30/22 16:19: Patient called today stating that no on had contacted her about an appointment with GI. I told her that the ED Crib Tender would be here tomorrow and I will be sure to bring this to her attention. Original Note: Nursing Note: Patient called about the referral to GI. I spoke with Care Management, they will look into it and call the patient back.
--- NOTE | 2022-07-23 15:27 | CMPROGNOTE_ITS ---
- If Service Date Differs Date of service: 07/23/22 Time of Service: 15:27 Care Management Progress Note CM was notified of a referral for [facility] [place] [facility] today. CM was unaware of this referral, as there was no referral filled out for this patient from the ED. CM sent referral to [facility] [place], including the ED note. CM attempted to call the patient, unable to reach at this time, message stated that the phone was not in service. If patient returns the call, he should follow up with [facility] [place] directly at in 2-3 days.
--- NOTE | 2022-07-23 15:27 | PDOC.ERCMPRO ---
- If Service Date Differs Date of service: 07/23/22 Time of Service: 15:27 Care Management Progress Note CM was notified of a referral for [facility] [place]. CM was unaware of this referral, as there was no referral filled out for this patient from the ED. CM sent referral to [facility] including the ED [place]. CM attempted to call the patient, unable to reach at this time, message stated that the phone was not in service. If patient returns the call, he should follow up with [facility] directly at [phone] in 2-3 days.
== END 2022-07-11 18:06 | disposition home or self-care (01) ==
PROVIDERS: Emergency Provider Emergency Medicine; PCP Nurse Practitioner Family
DX: R11.2 Nausea with vomiting, unspecified (principal); R20.2 Paresthesia of skin; F41.9 Anxiety disorder, unspecified; R45.1 Restlessness and agitation; R00.0 Tachycardia, unspecified; R68.2 Dry mouth, unspecified
CPT/HCPCS: 36415; 80053; 80307; 83690; 96361; 96374; 99284; 81003; 83735; 85025; J1790

== ENCOUNTER 2022-07-31 21:30 | Outpatient (REF) | payer BC, SELFPAY ==
[2022-07-31 21:58] LABS: ALT 23 U/L (16-63); AST 22 U/L (15-37); Albumin 4.7 g/dL (3.4-5.0); Alkaline Phosphatase 97 U/L (46-116); Anion Gap 9.9 mmol/L (3-11); BUN 9 mg/dL (7-18); Bilirubin, Total 0.9 mg/dL (0.2-1.0); CO2 27.1 mmol/L (21.0-32.0); CREATININE 0.8 mg/dL (0.70-1.30); Calcium 9.9 mg/dL (8.5-10.1); Chloride 101 mmol/L (98-107); Estimated GFR 129.13 (mL/min/1.73m2); Glucose 82 mg/dL (74-106); Potassium 3.8 mmol/L (3.5-5.1); Sodium 138 mmol/L (136-145); Total Protein 7.9 g/dL (6.4-8.2)
[2022-07-31 21:59] LABS: Abs Immature Grans 0.02 10^3/uL (0.0-0.06); Absolute Basophil Count 0.03 10^3/uL (0.0-0.2); Absolute Lymphocyte Count 2.38 10^3/uL (1.2-3.4); Absolute Monocyte Count 0.62 10^3/uL (0.1-0.8); Absolute Neutrophil Count 4.25 10^3/uL (1.2-6.7); Basophils % 0.4; Eosinophils % 2.7; HGB 16.1 g/dL (13.5-17.5); Immature Grans % 0.3; Lymphocytes % 31.7; MCH 30.6 pg (27.0-33.0); MCHC 35.8 % (32.0-36.0); MCV 86 fL (80-95); Monocytes % 8.3; Neutrophils % 56.6; Platelet Count 294 10^3/uL (130-400); RBC 5.26 10^6/uL (4.36-5.78); RDW 11.9 % (11.8-14.1); RDW-SD 37.4 fL
[2022-08-02 12:18] LABS: IgA 238 mg/dL (85-499); Interpretation (See Note); Tissue Transglutaminase IgA <1.2 U/mL (<4.0)
== END 2022-07-31 21:31 | disposition home or self-care (01) ==
LOC: LBN 21:30
PROVIDERS: Visit Provider Nurse Practitioner Family
DX: R19.7 Diarrhea, unspecified (principal); R10.9 Unspecified abdominal pain; R11.10 Vomiting, unspecified
CPT/HCPCS: 80053; 82784; 83516; 85025

== ENCOUNTER 2022-08-15 01:25 | Outpatient (CLI) | payer BC, SELFPAY ==
[2022-08-15] MEDS: Barium Sulfate 2% W/V-Berry Smoothie 450 ML BTL PO ×2 (12:33→12:34)
[2022-08-15] MEDS: Omnipaque 350 MG/ML 500 ML BTL-Imaging package IJ (14:04)
[2022-08-15] MEDS: Normal Saline Flush 10 ML SYR IVP (14:06)
--- NOTE | 2022-08-15 14:06 | DI.CT_ITS ---
Exam(s) CT ABDOMEN PELVIS W EXAM: CT ABDOMEN PELVIS W CLINICAL HISTORY: continued pain, vomiting, diarrhea for 4 weeks, R19.7, R10.9 TECHNIQUE: Imaging Protocol: Axial computed tomography images with coronal and sagittal reformatted images were created and reviewed CONTRAST MATERIAL: Intravenous: Omnipaque 350 Contrast volume:100 mL Oral: Yes COMPARISON: No exams were available for comparison FINDINGS: ABDOMEN: Lung Bases: Normal where visualized. Liver: Normal density. No measurable mass. Portal, Superior Mesenteric, and Splenic Veins: Unremarkable. Gallbladder and Biliary Tract: No radiodense calculus or dilation. Pancreas: Normal density, no abnormal calcifications or inflammatory process. Spleen: Normal. Adrenals: No masses seen. Kidneys: Normal size, contour and axis. No radiodense stones or obstructive uropathy. No masses seen. Abdominal Aorta: Abdominal portion non-dilated. Bowel: No obstruction or bowel wall thickening. There is no evidence of appendicitis. Peritoneal Cavity: No ascites, collection or mesenteric inflammatory response. No free air. Lymph Nodes: There are mildly enlarged lymph nodes. The largest lymph node is seen in the right lowe r quadrant and measures 1.2 cm. Bones: Within normal limits for the patient's age. Soft Tissues: There is a small fat containing umbilical hernia. PELVIS: Bladder: Symmetric distention, no gross wall thickening. Reproductive Organs: Unremarkable as visualized. Lymph Nodes: Within normal limits. Bones: Within normal limits for the patient's age. IMPRESSION: Mildly enlarged mesenteric lymph nodes which may represent mesenteric adenitis. This can also be see n associated with an enteritis. Please correlate clinically. RADIATION DOSE DELIVERED: 776.69mGy.cm Total DLP DATA REPOSITORY: All CT scans at this facility are submitted to the National Radiology Data Registry (NRDR) Dose Index Registry (DIR) with the [employer] (ACR). RADIATION OPTIMIZATION: All CT scans at this facility use at least one of these dose optimization te chniques: automated exposure control; mA and/or kV adjustment per patient size (includes targeted exa ms where dose is matched to clinical indication); or iterative reconstruction.
== END 2022-08-15 01:45 ==
LOC: DI 01:25
PROVIDERS: Visit Provider Nurse Practitioner Family
DX: R10.9 Unspecified abdominal pain (principal); R19.7 Diarrhea, unspecified; R11.10 Vomiting, unspecified; R59.0 Localized enlarged lymph nodes
CPT/HCPCS: 74177

== ENCOUNTER 2024-10-22 09:55 | Emergency (ER) | payer BC, SELFPAY ==
[2024-10-22 09:59] VITALS: BP 135/85; PULSE 105; RESP 18; TEMP 36.6; O2SAT 98
--- NOTE | 2024-10-22 10:36 | ED.GENADUL_ITS ---
Discharge Plan Disposition Patient Disposition: Home Condition: Good Discharge Details Clinical Impression: Gastritis Primary Care Provider: Unknown,Unknown ED Provider: Analisa Alonso Home Meds and New Rx's Prescriptions: No Action No Known Home Meds Discharge Instructions Additional Instructions: Please take your medications as prescribed by gastroenterology. Follow-up with gastroenterology as discussed. Stay well-hydrated, drinking plenty of fluid throughout the day. Advance diet slowly as tolerated. Please use the Zofran you already have prescribed to help with nausea/vomiting. Return to emergency care if you develop new severe abdominal pain, uncontrollable vomiting, episodes of passing out, or if you are very worried you need to be rechecked again immediately Discharge Data Discharge Date/Time-TO BE ENTERED AT DEPARTURE: 10/22/24 12:21 HPI General Date/Time Provider Initiated Documentation: 10/22/24 10:01 . HPI Narrative: Tami is a 23 year old male who presents to the emergency department today for evaluation of generalized abdominal pain and nausea/vomiting and diarrhea for last 5 days. He reports that he has had bouts of this pain and nausea for the last 2 years, was prescribed antibiotic treatment for h. heilmanni infection, but has not been able to start taking the medication due to persistent vomiting. Denies fever/chills, congestion, sore throat, cough, chest pain, shortness of breath, blood in stool for emesis, dysuria. He does report decreased urine output, approximately 2 times daily that he attributes to dehydration. Has only been able to tolerate sips of fluid in the late afternoons. Vomiting 50+ times a day with multiple bouts of diarrhea. Denies history of abdominal surgeries or immunocompromise. Past medical history is significant for chronic abdominal paramjit n, currently being worked up by [facility]. He does admit to marijuana use, last used yesterday but will quit because he has been advised to stop cannabis use for 12 weeks while under treatment. Girlfriend is at bedside. Physical exam reassuring. Patient alert and oriented, no acute distress. He does appear like he is not feeling well. Slightly tacky mucous membranes. Easy work of breathing, lung sounds clear bilaterally. Normal heart sounds. Abdomen soft, nondistended, mild tenderness to palpation in all champagne, no rigidity or guarding. Normoactive bowel sounds. Moving all extremities equally. D/dx includes but is not limited to: Dehydration, electrolyte imbalance, ELIEL, pancreatitis, gastritis. No red flags concerning for acute surgical abdomen requiring diagnostic imaging at this time, as this is consistent with previous episodes of chronic abdominal pain that is currently being worked up. I independently interpreted the following tests: CBC notable for mild leukocytosis, consistent with vomiting. CMP reassuring, mildly elevated BUN to creatinine ratio, consistent with prerenal azotemia due to vomiting and decreased p.o. intake. Lipase reassuring. EKG performed to rule out QT prolongation prior to Zofran use (he has a prescription already written by other provider); this was reassuring with normal sinus rhythm rate 78, QTc 438. While in the emergency department, Tami received IV fluids and droperidol with good improvement of symptoms, says he is feeling much better at this time, feels good to go home and take p.o. at home. Reviewed discharge instructions with patient, including symptomatic management and red flags indicating need for return to emergency care. Strongly advised taking at home treatment regimen as prescribed, he is agreeable with plan of care. Related Data Home Medications ?Medication ?Instructions ?Recorded ?Confirmed Unknown [No Known Home Meds] 10/22/24 10/22/24 Allergies Allergy/AdvReac Type Severity Reaction Status Date / Time amoxicillin Allergy Mild RASH Verified 10/22/24 12:08 General Stated Complaint: Abd Prob PAYAM: 3 Course Vital Signs Vital signs: Vital Signs Temperature 36.6 C 10/22/24 09:59 Pulse 105 H 10/22/24 09:59 Respiratory Rate 18 10/22/24 09:59 Blood Pressure 135/85 10/22/24 09:59 Pulse Oximetry 98 10/22/24 09:59 Temperature 36.6 C 10/22/24 09:59 Pulse 105 H 10/22/24 09:59 Respiratory Rate 18 10/22/24 09:59 Blood Pressure 135/85 10/22/24 09:59 Blood Pressure Position Sitting 10/22/24 09:59 Pulse Oximetry 98 10/22/24 09:59 End Tidal Co2 8 10/22/24 09:59 Medical Decision Making Quality:SDOH Health Related Social Needs: No Data to Display PFSH All Active Problems (Updated 10/22/24 @ 12:10 by Analisa Vidal) Gastritis (Acute) Contusion of foot (Acute) Acute bilateral low back pain with bilateral sciatica (Acute) Chronic back pain (Acute) Diarrhea (Acute) started 07/16/22 Abdominal pain (Acute) Medical History Weyd-et-wbtj spots right cheek 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) Heart murmur Still's murmur Premature at 32 weeks Surgical History Repair of inguinal hernia bilateral at 6 months age Family History Father Mental disorder depression related to back pain Other Disorder of thyroid gland several maternal relatives Personal history of malignant neoplasm mat uncle with lymphoma Heart disease on maternal side Parkinsonism maternal side Grandmother Hypertensive disorder, systemic arterial Mother Hx of tonsillectomy Social History Smoking/Tobacco Use Status: Current every day Tobacco Type: e-cigarettes Tobacco: How many years used: 1 Smoking risk assessment performed?: Yes Alcohol Intake: never Drug use: Daily Substance use type: marijuana Do you feel safe at home: Yes Do you feel safe in your relationship?: Yes
[2024-10-22] MEDS: Droperidol 5 MG/2 ML VIAL 1.25 MG IVP (10:49)
[2024-10-22] MEDS: Normal Saline 1,000 ML 1000 ML IV (10:50)
[2024-10-22 10:53] LABS: HCT 51.1 % (40.0-50.0); HGB 18.6 g/dL (13.5-17.5); MCH 30.8 pg (27.0-33.0); MCHC 36.4 % (32.0-36.0); MCV 85 fL (80-95); MPV 10.7 fL (8.0-11.0); Platelet Count 331 10^3/uL (130-400); RBC 6.04 10^6/uL (4.36-5.78); RDW 11.8 % (11.8-14.1); RDW-SD 35.7 fL
[2024-10-22 11:16] LABS: ALT 31 U/L (16-63); AST 20 U/L (15-37); Albumin 5.2 g/dL (3.4-5.0); Alkaline Phosphatase 92 U/L (46-116); Anion Gap 12.4 mmol/L (3-11); BUN 30 mg/dL (7-18); Bilirubin, Total 2.2 mg/dL (0.2-1.0); CO2 26.6 mmol/L (21.0-32.0); CREATININE 1.1 mg/dL (0.70-1.30); Calcium 10.6 mg/dL (8.5-10.1); Chloride 94 mmol/L (98-107); Estimated GFR 96.74 (mL/min/1.73m2); Glucose 145 mg/dL (74-106); Lipase 19 U/L (<78); Potassium 3.6 mmol/L (3.5-5.1); Sodium 133 mmol/L (136-145); Total Protein 9.1 g/dL (6.4-8.2)
[2024-10-22 11:47] VITALS: BP 118/54; PULSE 81; RESP 18; O2SAT 97
--- NOTE | 2024-10-22 12:00 | RT.EKG_ITS ---
APPROVED REPORT Exam: Resting ECG Reason for Exam: r/o prolonged QT Patient Location: E HR:78 bpm ECG Measurements Heart Rate 78 AXIS NV 133 P 70 QRSd 106 QRS 81 QT 385 T 66 QTc 438 Conclusion Sinus rhythm...normal P axis, V-rate 60- 99 ST elev, probable normal early repol pattern...ST elevation, age<55
[2024-10-22 12:10] LABS: Bilirubin Negative (Negative); Blood Negative (Negative); Clarity Clear (Clear); Glucose Negative (Negative); Ketones Negative (Negative); Leukocyte Esterase Negative (Negative); Nitrite Negative (Negative); Specific Gravity 1.015 (1.005-1.025); Urobilinogen 0.2 mg/dL (Up to 0.2)
[2024-10-22 12:19] VITALS: BP 134/84; PULSE 67; RESP 18; TEMP 36.9; O2SAT 98
[2024-10-22 12:21] LABS: Bacteria Few HPF (Negative); C & S Indicated? No; Casts Negative LPF (Negative); Crystals Negative HPF (Negative); Epithelial Cells Rare HPF (Negative); Mucus Trace (Negative); RBC Negative HPF (0-2); WBC 0-2 HPF (0-5)
== END 2024-10-22 12:21 | disposition home or self-care (01) ==
PROVIDERS: Emergency Provider Nurse Practitioner Family
DX: K29.70 Gastritis, unspecified, without bleeding (principal); F17.290 Nicotine dependence, other tobacco product, uncomplicated
CPT/HCPCS: 80053; 83690; 85027; 93005; 96361; 96374; 99284; 81003; 81015; 93010; J1790